=== PATIENT | female | born 1975 | race African-American/Black ===

== ENCOUNTER 2020-08-29 10:48 | Emergency (ER) | payer OTHER ==
[~2020-08-29] VITALS: Ht 157.5 cm; Wt 81.7 kg
[~2020-08-29 10:48] MED LIST: NEXIUM 40 MG CA40 M1 PO
[2020-08-29 11:19] LABS: URINE BILIRUBIN NEGATIVE (Negative); URINE BLOOD 3+ (Negative); URINE CLARITY CLEAR; URINE COLOR YELLOW; URINE GLUCOSE-RANDOM* NEGATIVE (Negative); URINE KETONES NEGATIVE (Negative); URINE LEUKOCYTES-REFLEX NEGATIVE (Negative); URINE NITRITE-REFLEX NEGATIVE (Negative); URINE PROTEIN (DIPSTICK) NEGATIVE (Negative); URINE SPECIFIC GRAVITY 1.025 (1.005-1.035)
[2020-08-29 12:20] LABS: ABSOLUTE NEUTROPHILS 4.3 thou/uL (1.4-8.2); BASOPHILS 0.7 % (0.0-2.0); HEMOGLOBIN 10.8 gm/dL (12.0-15.0); LYMPHOCYTES 26.5 % (24.0-44.0); MCH 25.2 pg (26.0-34.0); MCHC 31.7 g/dL (28.0-37.0); MCV 79.5 fL (80.0-100.0); MONOCYTES 6.7 % (1.0-8.0); PLATELET COUNT 421 thou/uL (150-400); POLYS 64.1 % (36.0-66.0); RBC 4.28 mil/uL (4.20-5.00); RDW 17.1 % (10.5-14.5); WBC 6.7 thou/uL (4.0-11.0)
[2020-08-29 12:23] LABS: SQUAMOUS 4-10 Moderate /LPF (0-3)
[2020-08-29 12:24] LABS: MUCUS >6 Heavy strn/LPF (None Seen); URINE RBC 0-2 Rare /HPF (0-2); URINE WBC-REFLEX 0-5 Rare /HPF (0-5)
[2020-08-29 12:45] LABS: ALBUMIN 3.8 g/dL (3.4-5.0); CREATININE 0.8 mg/dL (0.6-1.0); POTASSIUM 3.5 mmol/L (3.5-5.1); TOTAL BILIRUBIN 0.3 mg/dL (0.2-1.0); TOTAL PROTEIN 7.3 g/dL (6.4-8.2)
[2020-08-29] MEDS ORDERED: HYDROCODON-ACE1 EAC7 PO (15:05)
[2020-08-29 15:11] VITALS: BP 129/80
== END 2020-08-29 15:12 | disposition home or self-care (01) ==
LOC: ER 10:48
PROVIDERS: Physician Assistant
DX: D25.9 Leiomyoma of uterus, unspecified (principal); G40.909 Epilepsy, unspecified, not intractable, without status epilepticus; Z98.890 Other specified postprocedural states; Z79.899 Other long term (current) drug therapy; Z88.0 Allergy status to penicillin

== ENCOUNTER 2021-03-07 18:23 | Emergency (ER) | payer OTHER ==
[~2021-03-07 18:23] MED LIST changes: +HYDROCODON-ACE1 EAC7 PO
[2021-03-07 18:31] VITALS: BP 130/95
== END 2021-03-07 19:10 | disposition left against medical advice (07) ==
LOC: ER 18:23
DX: Z53.21 Procedure and treatment not carried out due to patient leaving prior to being seen by health care provider (principal)

== ENCOUNTER 2021-05-26 16:16 | Inpatient (IN) | payer OTHER ==
[~2021-05-26] VITALS: Ht 152.4 cm; Wt 89.4 kg
[2021-05-26 16:20] VITALS: BP 108/80
[2021-05-26] MEDS ORDERED: KEPPRA XR750 MG PO (16:27)
[2021-05-26 17:21] LABS: ABSOLUTE NEUTROPHILS 6.5 thou/uL (1.4-8.2); BASOPHILS 0.8 % (0.0-2.0); EOSINOPHILS 1.5 % (0.0-3.0); HEMOGLOBIN 9.5 gm/dL (12.0-15.0); LYMPHOCYTES 16.6 % (24.0-44.0); MCH 25.6 pg (26.0-34.0); MCHC 32.8 g/dL (28.0-37.0); MCV 77.9 fL (80.0-100.0); PLATELET COUNT 415 thou/uL (150-400); POLYS 75.1 % (36.0-66.0); RBC 3.72 mil/uL (4.20-5.00); RDW 16.6 % (10.5-14.5); WBC 8.7 thou/uL (4.0-11.0)
[2021-05-26 17:30] LABS: CALCIUM 8.6 mg/dL (8.5-10.1); CREATININE 0.8 mg/dL (0.6-1.0); POTASSIUM 4.3 mmol/L (3.5-5.1)
[2021-05-26 17:48] LABS: APTT 26.1 Seconds (24.5-32.8); INR 1.11
[2021-05-26 21:24] VITALS: BP 109/68
[2021-05-26 22:02] LABS: CHOLESTEROL 159 mg/dL (<200); HDL CHOLESTEROL 47 mg/dL (>40); LDL CHOLESTEROL 98 mg/dL (<100); TC:HDL 3.4 Ratio (Not establshd); TRIGLYCERIDE 74 mg/dL (<150); VLDL 15 mg/dL (<40)
[2021-05-26 22:06] LABS: SERUM ASSESSMENT Clear
[2021-05-26 22:09] VITALS: BP 100/68
[2021-05-26 22:27] VITALS: BP 121/91
[2021-05-27] VITALS (12 sets, daily range): BP systolic 100–140; BP diastolic 66–99
[2021-05-27 00:50] LABS: HEMATOCRIT 27.5 % (37.0-47.0); HEMOGLOBIN 8.7 gm/dL (12.0-15.0); MCH 24.7 pg (26.0-34.0); MCHC 31.6 g/dL (28.0-37.0); MCV 78.1 fL (80.0-100.0); RBC 3.52 mil/uL (4.20-5.00); RDW 16.2 % (10.5-14.5); WBC 8.6 thou/uL (4.0-11.0)
--- NOTE | 2021-05-27 01:39 | NUR ---
PATIENT IS A NEW PATIENT TO THE UNIT THIS SHIFT. SHE ARRIVED VIA WHEELCHAIR AND WAS ABLE TO AMBULATE TO THE BED WITHOUT INCIDENT.
--- NOTE | 2021-05-27 18:44 | NUR ---
PT HAD CARDIAC CATH TODAY. RIGHT GROIN INCISION C/D/I. NO HEMATOMA NOTED. NPO AFTER MIDNIGHT FOR CARDIAC CATH IN AM.
[2021-05-28] VITALS: BP 130/93
[2021-05-28 02:06] LABS: GLYCOHEMOGLOBIN (HGB A1C) 5.4 % (4.8-5.6)
[2021-05-28 04:00] VITALS: BP 112/84
--- NOTE | 2021-05-28 05:20 | NUR ---
RECEIVED THE PATIENT AT 1900H ALERT AND ORIENTED X4.ON ROOM AIR BREATHING SPONTANEOUSLY.WITH RIGHT GROIN SITE COVERED WITH DRESSING C/D/I, NO HEMATOMA OR ANY COMPLICATIONS NOTED.NOT IN PAIN OR DISTRESS.KEPT NPO FROM MIDNIGHT.ALL NEEDS ATTENDED.
[2021-05-28 05:27] LABS: HEMATOCRIT 27.8 % (37.0-47.0); MCH 25.2 pg (26.0-34.0); MCHC 32.3 g/dL (28.0-37.0); MCV 78.2 fL (80.0-100.0); RBC 3.56 mil/uL (4.20-5.00); RDW 16.3 % (10.5-14.5); WBC 7.1 thou/uL (4.0-11.0)
[2021-05-28 07:00] VITALS: BP 122/89
--- NOTE | 2021-05-28 07:30 | EKG ---
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
--- NOTE | 2021-05-28 07:30 | EKG ---
[address] [address] ELECTROCARDIOGRAM REPORT Name: DARRION SCOTT Room #: 210- ADM IN M.R.#: [id number] Admission: 05/26/21 Attend Phys: Jeane Raymond MD Discharge: Date of : 75 Report #: [id number] 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1975 Requested By: Marisel Castañeda Order Number: [id number] MD: Westley Polk Measurements Intervals [place] Rate: 98 P: 26 [place]: 153 QRS: 30 QRSD: 88 T: 46 QT: 356 QTc: 455 Interpretive Statements Incomplete analysis due to missing data in precordial lead(s) Sinus rhythm Baseline wander in lead(s) II,III,aVF Missing lead(s): V6 No previous ECG available for comparison Electronically Signed On 05-28-2021 7:30:40 CDT by Westley Polk [email or web address] <ELECTRONICALLY SIGNED> By: Westley Polk MD, [facility] 05/28/21 0730 1628 1628 Westley Polk MD, [facility] /EPI
[2021-05-28] MEDS ORDERED: ROSUVASTATIN CA10 MG PO (09:34)
[2021-05-28] MEDS ORDERED: NITROSTAT0.4 M1 SUBLING (10:51)
[2021-05-28] MEDS ORDERED: CLOPIDOGREL75 MG PO (10:52)
[2021-05-28] MEDS ORDERED: METOPROLOL SUCC25 M1 PO (10:52)
[2021-05-28] MEDS ORDERED: ASA81BEC PO (10:53)
[2021-05-28 11:00] VITALS: BP 124/88
[2021-05-28] MEDS ORDERED: BAYER CHEWABLE81 MG PO (12:36)
[2021-05-28] MEDS ORDERED: LIPITOR40 MG PO (12:36)
[2021-05-28 12:40] VITALS: BP 124/88
--- NOTE | 2021-05-28 13:24 | NUR ---
PT ALERT AND ORIENTED. VSS. ORDERS GIVEN TO DISCHARGE PT TO HOME. DISCHARGE INSTRUCTIONS GIVEN TO PT. PT VERBERLISED UNDERSTANDING.
== END 2021-05-28 13:26 | disposition home or self-care (01) | DRG 282 ==
LOC: ER 16:16 → 2N 19:46 → EROBS 19:46 → 2N 22:09
PROVIDERS: Emergency Medicine; ADMIT Hospitalist; ATTEND Hospitalist
PROC: 4A023N7 Measurement of Cardiac Sampling and Pressure, Left Heart, Percutaneous Approach (ICD-10-PCS; principal; 2021-05-27)
PROC: B2111ZZ Fluoroscopy of Multiple Coronary Arteries using Low Osmolar Contrast (ICD-10-PCS; principal; 2021-05-27)
DX: I21.4 Non-ST elevation (NSTEMI) myocardial infarction (principal); G40.909 Epilepsy, unspecified, not intractable, without status epilepticus; F17.210 Nicotine dependence, cigarettes, uncomplicated; D64.9 Anemia, unspecified; I25.10 Atherosclerotic heart disease of native coronary artery without angina pectoris; D32.9 Benign neoplasm of meninges, unspecified; Z88.0 Allergy status to penicillin; Z71.6 Tobacco abuse counseling
CPT/HCPCS: 10081